=== PATIENT | female | born 1960 | race Caucasian/White ===

== ENCOUNTER 2017-12-17 08:24 | Emergency (ER) | payer MEDICARE, MEDICAID ==
[2017-12-17 08:41] VITALS: BP 112/85
--- NOTE | 2017-12-17 09:37 | EDM.PDOC ---
ED HPI GENERAL MEDICAL PROBLEM - General Chief Complaint: General Stated Complaint: BODY ACHES Time Seen by Provider: 12/17/17 08:48 Source of Information: Reports: Patient History Limitations: Reports: No Limitations - History of Present Illness INITIAL COMMENTS - FREE TEXT/NARRATIVE: The patient presents with body aches and a slight cough. This started on Monday. She also has some urinary frequency. She has a slight cough. She has no fever but she does have chills. She has no headache, sore throat, chest pain , shortness of breath, abdominal pain, nausea or vomiting. She did get the flu shot this year. Onset: Gradual Duration: Day(s): (2) Location: Reports: Generalized Quality: Reports: Ache Severity: Moderate Improves with: Reports: None Worsens with: Reports: None Associated Symptoms: Reports: Cough, Fever/Chills. Denies: Chest Pain, Headaches, Nausea/Vomiting, Shortness of Breath Back Pain Score (Numeric/FACES): 8 - Related Data Allergies Allergy/AdvReac Type Severity Reaction Status Date / Time No Known Allergies Allergy Verified 12/17/17 08:41 Home Meds: Home Meds Oseltamivir [Tamiflu] 75 mg PO BID #10 cap 12/17/17 [Rx] ED ROS GENERAL - Review of Systems Review Of Systems: See Below Constitutional: Reports: Chills, Malaise, Weakness, Fatigue. Denies: Fever HEENT: Reports: No Symptoms Respiratory: Reports: Cough. Denies: Shortness of Breath Cardiovascular: Reports: No Symptoms Endocrine: Reports: No Symptoms GI/Abdominal: Reports: No Symptoms : Reports: Frequency Musculoskeletal: Reports: No Symptoms Skin: Reports: No Symptoms ED EXAM, GENERAL - Physical Exam Exam: See Below Exam Limited By: No Limitations General Appearance: Alert, No Apparent Distress Ears: Normal External Exam, Normal Canal, Normal TMs Nose: Normal Inspection Throat/Mouth: Normal Inspection Head: Atraumatic, Normocephalic Neck: Normal Inspection Respiratory/Chest: No Respiratory Distress, Lungs Clear, Normal Breath Sounds Cardiovascular: Regular Rate, Rhythm, No Edema, No Murmur GI/Abdominal: Soft, Non-Tender, No Organomegaly, No Mass Back Exam: Normal Inspection Extremities: Normal Inspection Course - Vital Signs Last Recorded V/S: Last Vital Signs Temp 98.5 F 12/17/17 08:39 Pulse 94 12/17/17 08:39 Resp 18 12/17/17 08:39 BP 112/85 12/17/17 08:39 Pulse Ox 98 12/17/17 08:39 - Orders/Labs/Meds Labs: Laboratory Tests 12/17/17 Range/Units 08:42 Urine Color Light yellow (Yellow) Urine Appearance Clear (Clear) Urine pH 6.0 (5.0-8.0) Ur Specific [place] 1.010 (1.005-1.030) Urine Protein Negative (Negative) Urine Glucose (UA) Negative (Negative) Urine Ketones Negative (Negative) Urine Occult Blood Trace-intact H (Negative) Urine Nitrite Negative (Negative) Urine Bilirubin Negative (Negative) Urine Urobilinogen 0.2 (0.2-1.0) Ur Leukocyte Esterase Negative (Negative) Urine RBC 0-5 (0-5) /hpf Urine WBC 0-5 (0-5) /hpf Ur Epithelial Cells 0-5 (0-5) /hpf Urine Bacteria Rare (FEW) /hpf Urine Mucus Not seen (FEW) /hpf - Re-Assessments/Exams Free Text/Narrative Re-Assessment/Exam: 12/17/17 09:37 Her UA shows no UTI. Her influenza B was positive. 12/17/17 09:39 I will get her on tamiflu. Departure - Departure Time of Disposition: 09:40 Disposition: Home, Self-Care 01 Condition: Good Clinical Impression: Influenza B - Discharge Information Prescriptions: Oseltamivir [Tamiflu] 75 mg PO BID #10 cap Referrals: Kelsi Sears, [employer] ATTENDANT [Primary Care Provider] - 1 Week Forms: ED Department Discharge, ED Return to Work/School Form Additional Instructions: Take the tamiflu 2 times per day for 5 days. Drink plenty of fluids. Take motrin or tylenol for any fever or pain. Please return if you are worse.
== END 2017-12-17 09:48 | disposition home or self-care (01) ==
LOC: JD.ED 08:24
DX: J10.1 Influenza due to other identified influenza virus with other respiratory manifestations (principal)
CPT/HCPCS: 81001; 87804; 99283

== ENCOUNTER → 2020-12-31 | Day surgery (SDC) | payer MEDICARE, MEDICAID ==
[~2020-12-31] MED LIST: Lactated Ringers 1,000 ML IV SCH; Lidocaine 1% 4 ML ONE; Lidocaine 1%/Sod Bicarbonate in NS 8.4% 1 ML Syringe IDERM PRN; Propofol 200 MG/20 ML SDV ONE; Sodium Chloride 0.9% 10 ML Syringe FLUSH PRN; fentaNYL 100 MCG/2 ML SDV ONE
--- NOTE | 2020-12-31 08:33 | PCM.PREANE ---
Preanesthetic Assessment - Procedure Proposed Procedure: Screening Colonoscopy - Anesthesia/Transfusion/Family Hx Anesthesia History: Prior Anesthesia Without Reaction Family History of Anesthesia Reaction: No - Review of Systems General: No Symptoms Pulmonary: Other (Smoker 1/2 ppd, last at 0330. Hoarse voice. Dry cough. ) Cardiovascular: No Symptoms Gastrointestinal: No Symptoms Neurological: Pre-Existing Deficit (Back pain, scheduled for MRI soon. ) Other: Reports: Diabetes (Type II, Blood glucose 97 mg/dl. Controlled with oral mecdications. ) - Physical Assessment NPO Status Date: 12/30/20 NPO Status Time: 23:00 Vital Signs: Last Vital Signs Temp 36.2 C 12/31/20 07:24 Pulse 86 12/31/20 07:24 Resp 18 12/31/20 07:24 BP 123/85 12/31/20 07:24 Pulse Ox 96 12/31/20 07:24 Height: 1.6 m Weight: 60.2 kg ASA Class: 3 Mental Status: Alert & Oriented x3 Airway Class: Mallampati = 2 Dentition: Reports: Dentures (Upper), Partial (Lower) Thyro-Mental Finger Breadths: 2 Mouth Opening Finger Breadths: 3 ROM/Head Extension: Full Lungs: Clear to Auscultation, Normal Respiratory Effort, Decreased Breath Sounds Cardiovascular: Regular Rate, Regular Rhythm - Lab Values: Laboratory Last Values POC Glucose 97 mg/dL (80-115) 12/31/20 07:18 - Allergies Allergies/Adverse Reactions: Allergies Allergy/AdvReac Type Severity Reaction Status Date / Time No Known Allergies Allergy Verified 12/31/20 07:52 - Acknowledgements Anesthesia Type Planned: MAC Pt an Appropriate Candidate for the Planned Anesthesia: Yes Alternatives and Risks of Anesthesia Discussed w Pt/Guardian: Yes Pt/Guardian Understands and Agrees with Anesthesia Plan: Yes PreAnesthesia Questionnaire - Past Health History Medical/Surgical History: Denies Medical/Surgical History HEENT History: Reports: Allergic Rhinitis, Sinusitis, Other (See Below) Other HEENT History: left eye conjunctivits, excessive cerumen, nasal congestion Cardiovascular History: Reports: High Cholesterol Respiratory History: Reports: Other (See Below) Other Respiratory History: cough, URI Gastrointestinal History: Reports: None Genitourinary History: Reports: Other (See Below) Other Genitourinary History: hematuria, dysuria 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 (See Below) Other OB/BYN History: ovarian cyst aspiration, endometrial biopsy Musculoskeletal History: Reports: Arthritis, Back Pain, Chronic, Osteoporosis, Other (See Below) Other Musculoskeletal History: left wrist ganglion cyst Neurological History: Reports: None Psychiatric History: Reports: Depression, Other (See Below) Other Psychiatric History: fatigue Endocrine/Metabolic History: Reports: Diabetes, Type II Hematologic History: Reports: None Immunologic History: Reports: None Oncologic (Cancer) History: Reports: None Dermatologic History: Reports: Other (See Below) Other Dermatologic History: viral warts, hyperhidrosis, scalp wound with repair - Infectious Disease History Infectious Disease History: Reports: Influenza - Past Surgical History Head Surgeries/Procedures: Reports: None Cardiovascular Surgical History: Reports: None Respiratory Surgical History: Reports: None GI Surgical History: Reports: Colonoscopy Female Surgical History: Reports: Tubal Ligation Endocrine Surgical History: Reports: None Neurological Surgical History: Reports: None Oncologic Surgical History: Reports: None - SUBSTANCE USE Tobacco Use Status *Q: Current Every Day Tobacco User Recreational Drug Use History: No - HOME MEDS Home Medications: Home Meds Aluminum Chloride [Hypercare 20%] 1 dose TOP WEEKLY PRN 12/30/20 [History] Cholecalciferol (Vitamin D3) [Vitamin D3] 2,000 unit PO DAILY 12/30/20 [History] Fish Oil/[place]-3 Fatty Acids [Fish Oil 1,000 MG] 1 each PO DAILY 12/30/20 [History] Flunisolide 1 dose NASBOTH DAILY 12/30/20 [History] Meloxicam 15 mg PO DAILY PRN 12/30/20 [History] Rosuvastatin [Crestor] 5 mg PO DAILY 12/30/20 [History] metFORMIN HCl [Metformin HCl ER] 750 mg PO DAILY 12/30/20 [History] traMADol [Ultram] 50 - 100 mg PO Q6H PRN 12/30/20 [History] - CURRENT (IN HOUSE) MEDS Current Meds: Current Medications Lactated Ringer's (Ringers, Lactated) 1,000 mls @ 125 mls/hr IV ASDIRECTED SIRENA Stop: 12/31/20 23:00 Last Admin: 12/31/20 07:24 Dose: 125 mls/hr Documented by: Lidocaine/Sodium Bicarbonate (Buffered Lidocaine 1% In Ns 8.4%) 0.25 ml IDERM ONETIME PRN PRN Reason: Prior to IV Start Stop: 12/31/20 18:00 Last Admin: 12/31/20 07:24 Dose: 0.25 ml Documented by: Sodium Chloride (Saline Flush) 10 ml FLUSH ASDIRECTED PRN PRN Reason: Keep Vein Open Stop: 12/31/20 18:00 Discontinued Medications Fentanyl (Sublimaze) Confirm Administered Dose 100 mcg .ROUTE .STK-MED ONE Stop: 12/31/20 07:29 Lidocaine HCl (Xylocaine-Mpf 1%) Confirm Administered Dose 4 mls @ as directed .ROUTE .STK-MED ONE Stop: 12/31/20 07:30 Propofol (Diprivan 20 Ml) Confirm Administered Dose 400 mg .ROUTE .STK-MED ONE Stop: 12/31/20 07:29
--- NOTE | 2020-12-31 08:42 | PCM.PRNOTE ---
- Free Text/Narrative Note: Date: 12/31/2020 Procedure: screening colonoscopy Endoscopist: Ulises Rivera MD Findings: very good prep. Two small polyps removed with cold forceps, one at about 50 cm from anal verge and kassy at the proximal part of the rectum. Detailed Report: The patient was taken to the endoscopy suite and placed in left lateral decubitus position. Time out was performed and monitored anesthesia care initiated. Anus appeared normal. Digital exam unremarkable. The colonoscope was inserted and advanced to the cecum. The appendiceal orifice was visualized. Prep was very good. The scope was slowly withdrawn and mucosal surfaces carefully inspected. In the descending colon, a small sessile polyp was removed piecemeal with cold forceps. At the proximal edge of the rectum, a small hyperplastic appearing polyp was identified and removed with forceps. No diverticular disease or hemorrhoidal disease was appreciated. Air was suctioned prior to withdrawal of the scope. The patient tolerated the procedure well.
--- NOTE | 2020-12-31 08:47 | PCM48HPAN ---
Post Anesthesia Note - EVALUATION WITHIN 48HRS OF ANESTHETIC Vital Signs in Normal Range: Yes Patient Participated in Evaluation: Yes Respiratory Function Stable: Yes Airway Patent: Yes Cardiovascular Function Stable: Yes Hydration Status Stable: Yes Pain Control Satisfactory: Yes Nausea and Vomiting Control Satisfactory: Yes Mental Status Recovered: Yes Vital Signs: Last Vital Signs Temp 36.2 C 12/31/20 07:24 Pulse 86 12/31/20 07:24 Resp 18 12/31/20 07:24 BP 123/85 12/31/20 07:24 Pulse Ox 96 12/31/20 07:24
[2020-12-31 10:57] VITALS: BP 105/65; PULSE 66
== END | disposition home or self-care (01) ==
LOC: JD.SDS 07:01
PROVIDERS: ATTEND Surgery
DX: Z12.11 Encounter for screening for malignant neoplasm of colon (principal); K63.5 Polyp of colon; K62.1 Rectal polyp; G89.29 Other chronic pain; E78.5 Hyperlipidemia, unspecified; E11.9 Type 2 diabetes mellitus without complications; Z79.899 Other long term (current) drug therapy; Z79.84 Long term (current) use of oral hypoglycemic drugs; Z98.890 Other specified postprocedural states
CPT/HCPCS: 45380; 82962; J2704; J3010; J7120; 00812; 88305

== ENCOUNTER 2023-09-30 17:47 | Emergency (ER) | payer MEDICARE ==
[2023-09-30] MEDS ORDERED: Ketorolac 60 MG/2 ML SDV IM ONE (18:38)
[2023-09-30 19:42] VITALS: BP 130/82; PULSE 66
== END 2023-09-30 20:01 | disposition home or self-care (01) ==
LOC: JD.ED 17:47
DX: M79.10 Myalgia, unspecified site (principal); B34.9 Viral infection, unspecified; E11.9 Type 2 diabetes mellitus without complications; E78.00 Pure hypercholesterolemia, unspecified; Z79.899 Other long term (current) drug therapy; Z79.84 Long term (current) use of oral hypoglycemic drugs; Z86.16 Personal history of COVID-19; Z87.891 Personal history of nicotine dependence
CPT/HCPCS: 96372; 99283; J1885

== ENCOUNTER 2025-08-26 15:57 | Emergency (ER) | payer MEDICARE, OTHER ==
[2025-08-26 16:40] VITALS: BP 138/77; PULSE 63
== END 2025-08-26 18:55 | disposition home or self-care (01) ==
LOC: JD.ED 15:57
DX: M79.661 Pain in right lower leg (principal); M79.662 Pain in left lower leg; E78.00 Pure hypercholesterolemia, unspecified; E11.9 Type 2 diabetes mellitus without complications; Z86.16 Personal history of COVID-19; Z79.84 Long term (current) use of oral hypoglycemic drugs; Z79.899 Other long term (current) drug therapy
CPT/HCPCS: 93970; 93970-26; 99283